=== PATIENT | male | born 1990 | race Two or more races ===

== ENCOUNTER 2018-02-19 09:39 | Emergency (ER) | payer SELFPAY ==
--- NOTE | 2018-02-19 10:23 | EDM.PDOC ---
ED HPI GENERAL MEDICAL PROBLEM - General Chief Complaint: Neurological Problem Stated Complaint: MOUTH DROOPING Time Seen by Provider: 02/19/18 10:11 Source of Information: Reports: Patient History Limitations: Reports: No Limitations - History of Present Illness INITIAL COMMENTS - FREE TEXT/NARRATIVE: The patient presents with left sided facial droop. This started yesterday. He has no other neurologic deficits. He has no headache, numbness or weakness in his arms or legs. He has no fever, chills, cough, chest pain, abdominal pain, nausea or vomiting. He has never had this happen before. He did have the chicken pox as a child. Onset: Sudden Duration: Day(s): (Yesterday) Location: Reports: Face Severity: Moderate Improves with: Reports: None Worsens with: Reports: None Associated Symptoms: Reports: No Other Symptoms - Related Data Home Meds: Home Meds Prednisone [IJD: predniSONE] 60 mg PO WITHBREAKFAST #21 tab 02/19/18 [Rx] ED ROS GENERAL - Review of Systems Review Of Systems: See Below Constitutional: Reports: No Symptoms HEENT: Reports: No Symptoms Respiratory: Reports: No Symptoms Cardiovascular: Reports: No Symptoms Endocrine: Reports: No Symptoms GI/Abdominal: Reports: No Symptoms : Reports: No Symptoms Musculoskeletal: Reports: No Symptoms Skin: Reports: No Symptoms Neurological: Reports: Other (Facial droop) ED EXAM, NEURO - Physical Exam Exam: See Below Exam Limited By: No Limitations General Appearance: Alert, No Apparent Distress Eye Exam: Bilateral Eye: EOMI, PERRL Ears: Normal External Exam Nose: Normal Inspection Throat/Mouth: Normal Inspection Head Exam: Other (He cannot smile on the left and he cannot move his forehead on the left) Neck: Normal Inspection Respiratory/Chest: No Respiratory Distress, Lungs Clear, Normal Breath Sounds Cardiovascular: Regular Rate, Rhythm, No Edema, No Murmur GI/Abdominal: Soft, Non-Tender, No Organomegaly, No Mass Neurological: Alert, Oriented x 3, Other (Left forehead moves slightly when he attempts to do so. The left side of his jaw moves slightly when trying to smile.) Course - Re-Assessments/Exams Free Text/Narrative Re-Assessment/Exam: 02/19/18 10:26 The patient has Langston's palsy. I will get him on prednisone 60mg daily for 7 days, artificial tears and an eye patch at night to protect his eye. Departure - Departure Time of Disposition: 10:30 Disposition: Home, Self-Care 01 Condition: Good Clinical Impression: Langston palsy - Discharge Information Prescriptions: Prednisone [IJD: predniSONE] 60 mg PO WITHBREAKFAST #21 tab Referrals: PCP,None [Primary Care Provider] - Deb Reid MD [Physician] - 1 Week Forms: ED Department Discharge Additional Instructions: Take the prednisone 60mg daily for 7 days. Wear the eye patch at night to protect your eye. Buy some artificial tears and use the drops a few times per day to keep your eye moist. Follow up with Dr Meredith. Please return if you are worse.
== END 2018-02-19 10:48 | disposition home or self-care (01) ==
LOC: JD.ED 09:39
DX: G51.0 Bell's palsy (principal)
CPT/HCPCS: 99284

== ENCOUNTER 2018-02-27 13:45 | Emergency (ER) | payer SELFPAY ==
--- NOTE | 2018-02-27 14:53 | EDM.PDOC ---
ED HPI GENERAL MEDICAL PROBLEM - General Chief Complaint: General Stated Complaint: LEFT SIDE OF FACE STILL SWOLLEN AND NUMB Time Seen by Provider: 02/27/18 14:02 Source of Information: Reports: Patient History Limitations: Reports: No Limitations - History of Present Illness INITIAL COMMENTS - FREE TEXT/NARRATIVE: 27 y/o M with recent hx langston's palsy presents with ongoing L facial droop. He was seen here 1 wk ago for similar symptoms and prescribed prednisone 60mg daily x 7 days. Returns today because he's had no improvement in symptoms. No provoking factors. No recent illness or trauma. Has had facial droop for about 7 days. Affects upper and lower face. No improvement. Using artificial tears. No vision change. No headache or facial pain. No difficulty speaking or swallowing. No extremity weakness. No additional complaint, just concerned that he's not getting better. - Related Data Allergies Allergy/AdvReac Type Severity Reaction Status Date / Time No Known Allergies Allergy Verified 02/27/18 13:53 Home Meds: Home Meds . [No Known Home Meds] 02/27/18 [History] Past Medical History - Past Health History Medical/Surgical History: Denies Medical/Surgical History Social & Family History - Family History Family Medical History: Noncontributory - Tobacco Use Smoking Status *Q: Unknown Ever Smoked - Caffeine Use Caffeine Use: Reports: Coffee ED ROS GENERAL - Review of Systems Review Of Systems: See Below Constitutional: Denies: Fever HEENT: Denies: Vision Change Respiratory: Denies: Shortness of Breath Cardiovascular: Reports: No Symptoms Endocrine: Reports: No Symptoms GI/Abdominal: Reports: No Symptoms Neurological: Reports: Other. Denies: Headache, Change in Speech ED EXAM, GENERAL - Physical Exam Exam: See Below Exam Limited By: No Limitations General Appearance: Alert, WD/WN, No Apparent Distress Eye Exam: Bilateral Eye: EOMI, Normal Inspection, PERRL Ears: Normal External Exam Nose: Normal Inspection Throat/Mouth: Normal Inspection, Normal Oropharynx, Normal Voice, No Airway Compromise Head: Atraumatic, Normocephalic Neck: Normal Inspection, Supple, Non-Tender, Full Range of Motion Respiratory/Chest: No Respiratory Distress, Lungs Clear, Normal Breath Sounds, No Accessory Muscle Use Cardiovascular: Normal Peripheral Pulses, Regular Rate, Rhythm GI/Abdominal: Soft, Non-Tender, No Distention. No: Rebound Extremities: Normal Inspection Neurological: Alert, Oriented, Normal Cognition, Normal Gait, Other (+L upper and lower facial droop. Able to close eye, but weakly. Sensation intact. EOMI, ROMY, no extremity weakness. ) Psychiatric: Normal Affect, Normal Mood Skin Exam: Warm, Dry, Intact, Normal Color, No Rash Course - Vital Signs Last Recorded V/S: Last Vital Signs Temp 36.8 C 02/27/18 13:51 Pulse 70 02/27/18 13:51 Resp 18 02/27/18 13:51 BP 135/85 02/27/18 13:51 Pulse Ox 100 02/27/18 13:51 - Re-Assessments/Exams Free Text/Narrative Re-Assessment/Exam: 02/27/18 15:04 Discussed natural course of Langston's palsy. Patient has no additional neurological symptoms. Given only 7-8 days of symptoms, no indication for imaging today. Encouraged him to f/u with clinic provider in about 2 weeks so if he's not improving by then MRI may be considered. Departure - Departure Time of Disposition: 14:52 Disposition: Home, Self-Care 01 Clinical Impression: Langston's palsy - Discharge Information Instructions: Langston Palsy, Adult Referrals: PCP,None [Primary Care Provider] - Forms: ED Department Discharge Additional Instructions: 1. Duong un seguimiento con un proveedor de atencin primaria si no fernando allen hu debilidad facial en aproximadamente 2 semanas 2. Regrese al departamento de emergencias por cualquier nuevo sntoma relacionado
== END 2018-02-27 15:00 | disposition home or self-care (01) ==
LOC: JD.ED 13:45
DX: G51.0 Bell's palsy (principal)
CPT/HCPCS: 99283